=== PATIENT | female | born 1975 | race American Indian/Alaskan Native ===

== ENCOUNTER 2020-09-11 21:11 | Emergency (ER) | payer OTHER ==
[2020-09-11 22:42] VITALS: BP 187/106
--- NOTE | 2020-09-11 23:04 | Emergency Department Report ---
ED General Adult HPI - General Chief complaint: Skin Rash Stated complaint: ITCHY RASH ON BODY Time Seen by Provider: 09/11/20 22:49 Source: patient Mode of arrival: Ambulatory Limitations: No Limitations - History of Present Illness Initial comments: 44-year-old female with a past medical history of HIV and hypertension presents to the ER today complaining of pruritic skin rash. Patient states that she started breaking out in a rash around . She states that the rash has been constant but waxes and wanes and today when she got very upset it got worse. She is describes it as whelps but also with some bumps. She states that the rash is mainly to her chest, abdomen, back, posterior neck and upper extremities. She states that she has been trying Benadryl cream and cortisone cream without much relief of the symptoms. She states that the only new thing that she can recall using was fragrance body oil but she states she stopped u sing it but still continues to break out with the rash. She denied being upset when the rash first started around . She denies any other new contacts or any other new medications. She denies similar symptoms in the past. She states that she has been compliant with her HIV medication and her viral load is undetectable. She denies any swelling, coughing, wheezing, difficulty breathing or new symptoms at this time. Complaint: Skin rash; Welps -: Gradual, days(s) () Location: neck, chest, back, abdomen, upper extremity - Related Data Previous Rx's Medication Instructions Recorded Last Taken Type hydroCHLOROthiazide [HCTZ] 25 mg PO QDAY #30 tablet 08/27/18 Unknown Rx Famotidine [Pepcid] 20 mg PO BID #10 tablet 09/11/20 Unknown Rx diphenhydrAMINE [Benadryl CAP] 25 mg PO Q6HR PRN #30 capsule 09/11/20 Unknown Rx predniSONE [Deltasone] 60 mg PO QDAY #12 tab 09/11/20 Unknown Rx Allergies Allergy/AdvReac Type Severity Reaction Status Date / Time No Known Allergies Allergy Unverified 08/27/18 11:39 ED Review of Systems ROS: Stated complaint: ITCHY RASH ON BODY Other details as noted in HPI Comment: All other systems reviewed and negative Constitutional: no symptoms reported Respiratory: denies: cough, shortness of breath, wheezing Cardiovascular: denies: chest pain, palpitations Gastrointestinal: denies: abdominal pain, nausea, diarrhea Genitourinary: denies: urgency, dysuria, discharge Musculoskeletal: denies: back pain, joint swelling, arthralgia Skin: rash Neurological: denies: headache, weakness, paresthesias Psychiatric: denies: anxiety, depression ED Past Medical Hx - Past Medical History Previous Medical History?: Yes Hx Hypertension: Yes Hx HIV: Yes - Surgical History Past Surgical History?: Yes Additional Surgical History: tummy tuck - Social History Smoking Status: Never Smoker Substance Use Type: None - Medications Home Medications: Home Medications Medication Instructions Recorded Confirmed Last Taken Type hydroCHLOROthiazide [HCTZ] 25 mg PO QDAY #30 tablet 08/27/18 Unknown Rx Famotidine [Pepcid] 20 mg PO BID #10 tablet 09/11/20 Unknown Rx diphenhydrAMINE [Benadryl CAP] 25 mg PO Q6HR PRN #30 capsule 09/11/20 Unknown Rx predniSONE [Deltasone] 60 mg PO QDAY #12 tab 09/11/20 Unknown Rx ED Physical Exam - General Limitations: No Limitations General appearance: alert, in no apparent distress - Head Head exam: Present: atraumatic, normocephalic, normal inspection - Eye Eye exam: Present: normal appearance, PERRL, EOMI Pupils: Present: normal accommodation - ENT ENT exam: Present: normal exam, mucous membranes moist - Neck Neck exam: Present: full ROM - Respiratory Respiratory exam: Present: normal lung sounds bilaterally. Absent: respiratory distress - Cardiovascular Cardiovascular Exam: Present: regular rate, normal rhythm, normal heart sounds - GI/Abdominal GI/Abdominal exam: Present: soft. Absent: distended, tenderness - Neurological Exam Neurological exam: Present: alert, oriented X3, CN II-XII intact, normal gait - Psychiatric Psychiatric exam: Present: normal affect, normal mood - Skin Skin exam: Present: rash (Erythematous maculopapular urticarial rash noted to chest, abdomen, diffusely on the back, posterior neck and mildly to the upper extremities.) ED Course Vital Signs 09/11/20 22:39 Temperature 97.7 F Pulse Rate 65 Respiratory 16 Rate Blood Pressure 187/106 O2 Sat by Pulse 99 Oximetry ED Medical Decision Making - Medical Decision Making The patient is resting comfortably, is alert and in no distress. The patient has a normal mental status per age and is neurologically intact. The rash does not have petechiae or purpura. There are no mucous membrane lesions, no signs of abscess and no bullae. The patient appears well, is able to tolerate food or fluid by mouth and has no signs of systemic toxicity. The history, exam, and current condition do not demonstrate signs of sepsis or serious bacterial infection, Burgess spotted fever, meningitis, meningococcemia, Lyme's disease, toxic shock syndrome or other significant systemic illness requiring further treatment, testing or consultation in the emergency department. The patient's condition is stable and appropriate for discharge. The patient or caregiver will pursue further outpatient evaluation with the primary care physician or other designated or consulting physician as indicated in the discharge instructions. Critical care attestation.: If time is entered above; I have spent that time in minutes in the direct care of this critically ill patient, excluding procedure time. ED Disposition Clinical Impression: Hives Disposition: DC-01 TO HOME OR SELFCARE Is pt being admited?: No Does the pt Need Aspirin: No Condition: Stable Instructions: Hives Additional Instructions: Start taking the medications as prescribed. 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 Return to the ER if your symptoms changes or worsens. Prescriptions: diphenhydrAMINE [Benadryl CAP] 25 mg PO Q6HR PRN #30 capsule PRN Reason: Itching/swelling predniSONE [Deltasone] 60 mg PO QDAY #12 tab Famotidine [Pepcid] 20 mg PO BID #10 tablet Referrals: PRIMARY CARE [Primary Care Provider] - 3-5 Days Forms: Work/School Release Form(ED) Time of Disposition: 23:11
[2020-09-11] MEDS ORDERED: methylPREDNISolone Sod Succinate 125 MG/2 ML INJ IM ONE (23:05)
[2020-09-11] MEDS ORDERED: FAMOTIDINE 20 MG TAB PO ONE (23:14)
== END 2020-09-11 23:58 | disposition home or self-care (01) ==
LOC: ED 21:11
DX: L50.9 Urticaria, unspecified (principal); I10 Essential (primary) hypertension; Z21 Asymptomatic human immunodeficiency virus [HIV] infection status; Z79.899 Other long term (current) drug therapy
CPT/HCPCS: 96372; 99282; J2930

== ENCOUNTER 2020-10-28 20:18 | Emergency (ER) | payer OTHER ==
--- NOTE | 2020-10-28 20:45 | Event Note ---
ED Screening Note Date of service: 10/28/20 Time: 20:43 ED Screening Note: Patient is a 45-year-old -Turkish female with history of hypertension and HIV who presents with chest pain she advises adherence to all medications. Patient denies nausea vomiting, dizziness, lightheadedness at this time. Pain is described as achy sharp 5/10 plus intermittent. Pain is relieved relieved by rest and calming down. Pain is exacerbated by stress. This initial assessment/diagnostic orders/clinical plan/treatment(s) is/are subject to change based on patients health status, clinical progression and re- assessment by fellow clinical providers in the ED. Further treatment and workup at subsequent clinical providers discretion. Patient/guardian urged not to elope from the ED as their condition may be serious if not clinically assessed and managed. Initial orders include: CXR, EKG, CMP, CBC, UA, HCG, Trop
[2020-10-28 20:59] LABS: Basophils % (Auto) 0.3 % (0.0-1.8); Eosinophils # (Auto) 0.1 K/mm3 (0.0-0.4); Eosinophils % (Auto) 1.8 % (0.0-4.3); Hemoglobin 13.6 gm/dl (10.1-14.3); Lymphocytes # (Auto) 2.3 K/mm3 (1.2-5.4); Lymphocytes % (Auto) 36.2 % (13.4-35.0); Mean Corpuscular HGB Conc 33 % (30-34); Mean Corpuscular Volume 86 fl (79-97); Monocytes # (Auto) 0.3 K/mm3 (0.0-0.8); Monocytes % (Auto) 5.2 % (0.0-7.3); Platelet Count 165 K/mm3 (140-440); Red Blood Count 4.87 M/mm3 (3.65-5.03); Red Cell Distribution Width 16.8 % (13.2-15.2)
[2020-10-28 21:18] LABS: Alanine Aminotransferase 18 units/L (7-56); Albumin 4.4 g/dL (3.9-5); BUN/Creatinine Ratio 23; Blood Urea Nitrogen 18 mg/dL (7-17); Calcium 9.6 mg/dL (8.4-10.2); Hemolysis Index 2
[2020-10-28] MEDS ORDERED: cloNIDine 0.2 MG TAB PO ONE (21:27)
--- NOTE | 2020-10-28 21:41 | Emergency Department Report ---
ED Chest Pain HPI - General Chief Complaint: Chest Pain Stated Complaint: CHEST PAIN Time Seen by Provider: 10/28/20 21:12 Source: patient Mode of arrival: Ambulatory Limitations: No Limitations - History of Present Illness Initial Comments: Patient is 45 years old female with history of hypertension, noncompliant with medication. Patient presented to the ER complaining of left sided chest pain, tightness started all of a sudden while at work. Pain does not have any radiation. No aggravating or relieving factors. Patient denied any shortness of breath, fever, chills or cough. Patient stated that she has some work- related stress this evening. Patient stated that pain is much better now. Patient found to have a blood pressure of 181/114. MD Complaint: chest pain -: Sudden, This evening Onset: during rest Pain Location: left chest Severity scale (0 -10): 0 Quality: tightness Consistency: now resolved Treatments Prior to Arrival: none - Related Data Previous Rx's Medication Instructions Recorded Last Taken Type hydroCHLOROthiazide [HCTZ] 25 mg PO QDAY #30 tablet 08/27/18 Unknown Rx Famotidine [Pepcid] 20 mg PO BID #10 tablet 09/11/20 Unknown Rx diphenhydrAMINE [Benadryl CAP] 25 mg PO Q6HR PRN #30 capsule 09/11/20 Unknown Rx predniSONE [Deltasone] 60 mg PO QDAY #12 tab 09/11/20 Unknown Rx amLODIPine [Norvasc] 5 mg PO DAILY #30 tab 10/28/20 Unknown Rx hydroCHLOROthiazide [HCTZ] 25 mg PO QDAY #30 tablet 10/28/20 Unknown Rx Allergies Allergy/AdvReac Type Severity Reaction Status Date / Time No Known Allergies Allergy Unverified 08/27/18 11:39 Heart Score - HEART Score History: Slightly suspicious EKG: Non-specific Age: 45-65 Risk factors: 1-2 risk factors Troponin: < normal limit HEART Score: 3 - Critical Actions Critical Actions: 0-3 pts:0.9-1.7%risk of adverse cardiac event.Candidate for discharge ED Review of Systems ROS: Stated complaint: CHEST PAIN Other details as noted in HPI Comment: All other systems reviewed and negative Constitutional: denies: chills, fever Respiratory: denies: cough, shortness of breath, SOB with exertion, SOB at rest Cardiovascular: chest pain. denies: palpitations, dyspnea on exertion, orthopnea Gastrointestinal: denies: abdominal pain, nausea, vomiting Musculoskeletal: denies: back pain Neurological: denies: headache, weakness ED Past Medical Hx - Past Medical History Previous Medical History?: Yes Hx Hypertension: Yes Hx HIV: Yes - Surgical History Past Surgical History?: Yes Additional Surgical History: tummy tuck - Social History Smoking Status: Never Smoker Substance Use Type: Alcohol - Medications Home Medications: Home Medications Medication Instructions Recorded Confirmed Last Taken Type hydroCHLOROthiazide [HCTZ] 25 mg PO QDAY #30 tablet 08/27/18 10/28/20 Unknown Rx Famotidine [Pepcid] 20 mg PO BID #10 tablet 09/11/20 Unknown Rx diphenhydrAMINE [Benadryl CAP] 25 mg PO Q6HR PRN #30 capsule 09/11/20 Unknown Rx predniSONE [Deltasone] 60 mg PO QDAY #12 tab 09/11/20 Unknown Rx amLODIPine [Norvasc] 5 mg PO DAILY #30 tab 10/28/20 Unknown Rx hydroCHLOROthiazide [HCTZ] 25 mg PO QDAY #30 tablet 10/28/20 Unknown Rx ED Physical Exam - General Limitations: No Limitations General appearance: alert, in no apparent distress - Head Head exam: Present: atraumatic, normocephalic, normal inspection - Eye Eye exam: Present: normal appearance - ENT ENT exam: Present: normal exam, normal orophraynx, mucous membranes moist - Neck Neck exam: Present: normal inspection, full ROM. Absent: tenderness, meningismus - Respiratory Respiratory exam: Present: normal lung sounds bilaterally - Cardiovascular Cardiovascular Exam: Present: regular rate, normal rhythm, normal heart sounds - GI/Abdominal GI/Abdominal exam: Present: soft, normal bowel sounds. Absent: distended, tenderness, guarding, rebound, rigid, organomegaly, mass, bruit, pulsatile mass, hernia - Extremities Exam Extremities exam: Present: normal inspection, full ROM, normal capillary refill. Absent: tenderness, pedal edema, calf tenderness - Back Exam Back exam: Present: normal inspection, full ROM. Absent: CVA tenderness (R), CVA tenderness (L) - Neurological Exam Neurological exam: Present: alert, oriented X3, CN II-XII intact, normal gait - Psychiatric Psychiatric exam: Present: normal mood - Skin Skin exam: Present: warm, dry, intact ED Course Vital Signs 02/23/21 02/23/21 02/23/21 20:43 21:17 21:28 Temperature 98.7 F 97.7 F Pulse Rate 94 H 78 95 H Respiratory 16 16 Rate Blood Pressure 165/119 181/114 Blood Pressure 181/114 [Left] O2 Sat by Pulse 99 98 Oximetry 10/28/20 10/28/20 22:29 23:30 Temperature Pulse Rate 84 78 Respiratory 14 14 Rate Blood Pressure Blood Pressure 143/99 140/93 [Left] O2 Sat by Pulse 97 98 Oximetry ED Medical Decision Making - Lab Data Result diagrams: 10/28/20 20:44 10/28/20 20:44 - EKG Data -: EKG Interpreted by Nd Rate: normal - EKG Data Interpretation: no acute changes - Radiology Data Radiology results: report reviewed - Medical Decision Making Patient is 45 years old female with history of hypertension, noncompliant with medication. Patient presented to the ER complaining of left sided chest pain, tightness started all of a sudden while at work. Pain does not have any radiation. No aggravating or relieving factors. Patient denied any shortness of breath, fever, chills or cough. Patient stated that she has some work- related stress this evening. Patient stated that pain is much better now. Patient found to have a blood pressure of 181/114. EKG is unremarkable. Labs reviewed and is unremarkable including a negative troponin x2. Patient given clonidine 0.2 mg in blood pressure significantly improved. Chest x-ray is unremarkable. Patient given prescription for Norvasc and hydrochlorothiazide and advised to follow-up with her primary care physician in the next 2 to 3 days for outpatient cardiac work-up and to return to the ER if she develop any new symptoms. Critical care attestation.: If time is entered above; I have spent that time in minutes in the direct care of this critically ill patient, excluding procedure time. ED Disposition Clinical Impression: Acute chest pain, Malignant hypertension Disposition: -01 TO HOME OR SELFCARE Is pt being admited?: No Condition: Stable Instructions: Chest Pain (ED), Hypertension (ED) Prescriptions: amLODIPine [Norvasc] 5 mg PO DAILY #30 tab hydroCHLOROthiazide [HCTZ] 25 mg PO QDAY #30 tablet Referrals: PRIMARY CARE, [Primary Care Provider] - 3-5 Days
--- NOTE | 2020-10-28 22:00 | XRay Report ---
CHEST 2 VIEWS INDICATION / CLINICAL INFORMATION: Chest Pain. COMPARISON: None available. FINDINGS: SUPPORT DEVICES: None. HEART / MEDIASTINUM: No significant abnormality. LUNGS / PLEURA: No significant pulmonary or pleural abnormality. No pneumothorax. ADDITIONAL FINDINGS: No significant additional findings. IMPRESSION: No acute cardiopulmonary abnormality. Signer Name: Eric Baptiste MD Signed: 10/28/2020 9:56 PM Workstation Name: [id number]
[2020-10-29 01:05] VITALS: BP 140/93
== END 2020-10-29 01:05 | disposition home or self-care (01) ==
LOC: ED 20:18
DX: R07.9 Chest pain, unspecified (principal); I10 Essential (primary) hypertension; Z79.899 Other long term (current) drug therapy; Z21 Asymptomatic human immunodeficiency virus [HIV] infection status; Z98.890 Other specified postprocedural states
CPT/HCPCS: 36415; 71046; 80053; 84484; 85025; 93005